=== PATIENT | female | born 1995 | race African-American/Black ===

== ENCOUNTER 2017-12-29 12:10 | Emergency (ER) | payer SELFPAY ==
[~2017-12-29] VITALS: Ht 162.6 cm; Wt 65.3 kg
[2017-12-29 12:12] VITALS: TEMP 37.8; Ht 162.6 cm; Wt 65.3 kg
--- NOTE | 2017-12-29 13:20 | EMERGENCY ROOM VISIT NOTE ---
ED Visit Note First contact with patient: 12:21 CHIEF COMPLAINT: Left ear pain/foreign body HISTORY OF PRESENT ILLNESS: This 22-year-old female presents to ER stating that she has the back of an earring in her left ear canal. The patient states that she went to urgent care on and they did not feel comfortable removing the foreign body and she was told to contact ENT for removal. The patient did not contact them on Sunday. She also was instructed by urgent care that if the pain got worse she is to come to the ER. She states last night the pain was increased therefore she is here today. The patient states that she thinks the foreign body has been in her ear for a year. She Telling her PCP that she had muffled hearing but the PCP told her there was nothing in that left ear canal. REVIEW OF SYSTEMS: 6 system review was performed and was negative unless stated otherwise in history of present illness. PMH: The patient is healthy; asthma SOCIAL HISTORY: Patient denies tobacco use but admits to occasional alcohol use. PHYSICAL EXAM: Vital Signs: Were reviewed reviewed Nurse's notes. GENERAL: 22- year-old female appears in no acute distress. MENTAL Status: Alert and oriented 3. LEFT EAR: The patient has multiple ear piercings 1 which is through the tragus. There is a metal foreign body within the ear canal consistent with the back of an earring. There is no purulent drainage. EMERGENCY COURSE: Patient was evaluated. ENT was consulted. Dr. Grace stated that he would see the patient at 8 AM on Sunday in his office. I informed the patient a treatment plan and she was in agreement. The patient was discharged home in stable condition. DIAGNOSIS: Foreign body left ear DISCHARGE INSTRUCTIONS & TREATMENT: Ibuprofen 600 mg every 6 hours with food for pain. Recommend not lying on your left side. Appointment with Dr. Mooney at 8 AM on Sunday. Do not be late. Current/Historical Medications No Active Prescriptions or Reported Meds Vital Signs Date Time Temp Pulse Resp B/P (MAP) Pulse Ox O2 Delivery O2 Flow Rate FiO2 12/29/17 12:12 37.8 107 18 125/88 99 Room Air Departure Information Prescriptions No Active Prescriptions or Reported Meds Referrals No Doctor, Assigned (PCP) Patient Instructions [facility]
[2017-12-29] MEDS ORDERED: ACTUDL10 PO (13:29)
[2017-12-29 13:34] VITALS: BP 103/53; PULSE 73; O2SAT 99
== END 2017-12-29 13:34 | disposition home or self-care (01) ==
LOC: C.EDB 12:12 → C.EDD 13:34
DX: T16.2XXA Foreign body in left ear, initial encounter (principal); X58.XXXA Exposure to other specified factors, initial encounter